=== PATIENT | female | born 1990 | race Two or more races ===

== ENCOUNTER 2021-02-01 16:10 | Emergency (ER) | payer OTHER ==
[~2021-02-01] VITALS: Ht 170.2 cm; Wt 90.9 kg
[2021-02-01 16:27] VITALS: BP 129/74
== END 2021-02-01 17:59 | disposition home or self-care (01) ==
LOC: EMS 16:10
DX: M79.89 Other specified soft tissue disorders (principal)
CPT/HCPCS: 99283; Z7502

== ENCOUNTER 2021-07-05 04:33 | Emergency (ER) | payer OTHER ==
[~2021-07-05] VITALS: Ht 170.2 cm; Wt 81.8 kg
[2021-07-05 06:10] VITALS: BP 119/66
[2021-07-05] MEDS ORDERED: CIPR2.5D17 OS (06:12)
[2021-07-05] MEDS ORDERED: CIPROFLOXACIN HCL 0.3% 2.5 ML OPHTHALMIC SOLUTION OS ONE (06:15)
== END 2021-07-05 06:21 | disposition home or self-care (01) ==
LOC: EMS 04:36
DX: H16.002 Unspecified corneal ulcer, left eye (principal)
CPT/HCPCS: 99283